=== PATIENT | female | born 1955 | race Caucasian/White ===

== ENCOUNTER 2017-01-07 21:17 | Outpatient (CLI) | payer MEDICAID | END 2017-01-07 21:18 | disposition home or self-care (01) | DX: E11.9 Type 2 diabetes mellitus without complications (principal); I10 Essential (primary) hypertension; E78.1 Pure hyperglyceridemia; E78.5 Hyperlipidemia, unspecified ==

== ENCOUNTER 2017-01-09 10:48 | Outpatient (CLI) | payer MEDICAID | END 2017-01-09 10:49 | disposition home or self-care (01) | DX: Z11.59 Encounter for screening for other viral diseases (principal) ==

== ENCOUNTER 2017-01-16 13:23 | Outpatient (CLI) | payer MEDICAID ==
--- NOTE | 2017-01-17 16:59 | Mammography Report ---
DIGITAL SCREENING MAMMOGRAM: 01/16/2017 CLINICAL INDICATION: A 61-year-old with history of prior reduction for screening. COMPARISON: 01/2016, 10/2014, 08/2013, 04/2012, 05/2010, 03/2009 TECHNIQUE: Routine CC and MLO projections were obtained of the breasts. FINDINGS: Parenchymal tissue within the breasts is predominantly fatty replaced. There are no domina nt masses, suspicious microcalcifications, or secondary signs of malignancy. In comparison to the pre vious studies, there are no significant changes. IMPRESSION: NO MAMMOGRAPHIC EVIDENCE OF MALIGNANCY. NO SIGNIFICANT INTERVAL CHANGES. RECOMMENDATION: Screening mammography is recommended annually. BIRADS category 1 - negative. STANDARD QUALIFYING STATEMENTS 1. This examination was reviewed with the aid of Computed-Aided Detection (CAD). 2. A negative or benign imaging report should not delay biopsy if clinically suspicious findings are present. Consider surgical consultation if warranted. More than 5% of cancers are not identified by i maging. 3. Dense breasts may obscure an underlying neoplasm. JOB #: [id number] EXT JOB #:[id number]
== END 2017-01-16 13:24 | disposition home or self-care (01) ==
LOC: DI.N 13:23
PROVIDERS: ATTEND Nurse Practitioner Gerontology
DX: Z12.31 Encounter for screening mammogram for malignant neoplasm of breast (principal)
CPT/HCPCS: 77067